=== PATIENT | male | born 1970 | race Caucasian/White ===

== ENCOUNTER → 2019-01-28 16:40 | Outpatient (CLI) | payer OTHER, SELFPAY ==
[2019-01-28 17:21] LABS: Basophils % 0.6 % (0.1-2.0); Eosinophils # 0.2 K/mm3 (0.0-0.4); Eosinophils % 2.6 % (0.1-12.0); Hematocrit 43.3 % (42.0-52.0); Hemoglobin 13.8 g/dL (14.1-18.0); Lymphocytes # 1.8 K/mm3 (0.7-4.5); Lymphocytes % 23.4 % (10-50); Mean Corpuscular HGB Conc 31.9 g/dL (31.8-35.4); Mean Corpuscular Hemoglobin 28.2 pg (27.0-31.2); Mean Corpuscular Volume 88.4 fl (80-94); Mean Platelet Volume 7.6 fl (7.4-10.4); Monocytes # 0.5 K/mm3 (0.1-1.0); Monocytes % 6.2 % (1.7-9.3); Neutrophils # 5.1 K/mm3 (1.8-7.8); Neutrophils % 67.3 % (37.0-80.0); Platelet Count 244 K/mm3 (142-424); Red Cell Distribution Width 13.6 % (11.5-17.5); White Blood Count 7.6 K/mm3 (4.8-10.8)
[2019-01-28 18:44] LABS: Blood Urea Nitrogen 10 mg/dL (7-18); Carbon Dioxide 31 mmol/L (21.0-32.0); Chloride 108 mmol/L (98-107); Creatinine,Serum 1.07 mg/dL (0.70-1.30); Estimated Glomerular Filt Rate 73 ml/min (>60); GFR (African American) 89 ML/MIN (>60); Glucose 94 mg/dL (74-106); Sodium 147 mmol/L (136-145)
== END ==
PROVIDERS: Visit Provider Surgery
DX: Z01.812 Encounter for preprocedural laboratory examination (principal)
CPT/HCPCS: 36415; 80048; 85025

== ENCOUNTER 2020-03-23 15:07 | Emergency (ER) | payer OTHER, SELFPAY ==
[2020-03-23 15:07] VITALS: BP 149/101; PULSE 79; RESP 18; TEMP 36.8; O2SAT 100; BMI 34.9
--- NOTE | 2020-03-23 15:42 | HMH.EDDIZZ ---
ED Disposition Clinical Impression: M?ni?re's disease Disposition: Home, Self-Care Condition on Discharge: Good Instructions: Vertigo, DI for Meniere's Disease Prescriptions: Meclizine HCl [Meclizine 25mg Tab] 25 mg PO TID 10 Days #30 tab Transmission Status: Pending to [facility] Triamterene/Hydrochlorothiazid [Triamterene-Hctz 37.5-25 mg Tb] 1 each PO DAILY 30 Days #30 tab Transmission Status: Pending to [facility] Ondansetron [Zofran 4mg ODT] 4 mg PO TID PRN 4 Days #15 tab.rapdis PRN Reason: Nausea Transmission Status: Pending to [facility] Referrals: Leigh Ann Tirado [Primary Care Provider] - - Critical Care Critical Care Time: No Attestation: On 03/23/20, the high probability of a clinically significant, sudden or life threatening deterioration of the following system(s) required my full and direct attention, intervention and personal management. The time I documented below is in addition to time spent performing reported procedures but includes the following listed in this critical care notation. Medical Decision Making - Medical Records Medical records reviewed: Yes: I reviewed the patient's medical records. - Juan J Inquiry Pt receiving controlled substance: No Vital Signs: 03/23/20 15:07 Temperature 98.2 F Temperature Source Oral Pulse Rate [Right] 79 Respiratory Rate 18 Blood Pressure [Right Arm] 149/101 H Blood Pressure Mean [Right Arm] 117 02 Sat by Pulse Oximetry 100 - Lab Data Lab results reviewed: Yes: I reviewed the patient's lab results. Dizzy HPI - General Chief Complaint: Dizziness Stated Complaint: Motion sickness when standing Time Seen by Provider: 03/23/20 15:42 Mode of Arrival: Ambulatory Limitations: No Limitations Description of Symptoms (Recalled from ER Triage Doc. by RN): States for the past 2 days he has been having episodes of dizziness where the room is spinning and its making him nauseous. - History of Present Illness HPI Narrative: 49-year-old male presents to the ED with acute onset of vertigo. He states the symptoms been on for the past 2 to 3 days. Patient also states that he does have a sense of nausea but denies has not had an episode of emesis. Patient states that anytime he moves he gets an acute sense of vertigo he states that the room feels like it spinning and has been drawn towards the middle of the floor. Patient also has a slight buzzing in his left ear as well. Patient states this this is happened to him in the past but not as severe as this.Patient denies any recent cough or shortness of breath, patient denies any sore throat or headache, patient denies any loss of taste or smell, patient denies any malaise or fatigue, patient denies any abdominal pain nausea vomiting or diarrhea. - Related Data Home Medications Medication Instructions Recorded Confirmed Levothyroxine Sodium 300 mcg PO DAILY 01/17/19 01/17/19 [Levothyroxine 300mcg (0.3mg) Tab] Omeprazole [Omeprazole 20mg Tab] 20 mg PO DAILY 01/17/19 01/17/19 Previous Rx's Medication Instructions Recorded Meclizine HCl [Meclizine 25mg Tab] 25 mg PO TID 10 Days #30 tab 03/23/20 Ondansetron [Zofran 4mg ODT] 4 mg PO TID PRN 4 Days #15 03/23/20 tab.rapdis Triamterene/Hydrochlorothiazid 1 each PO DAILY 30 Days #30 tab 03/23/20 [Triamterene-Hctz 37.5-25 mg Tb] Allergies Allergy/AdvReac Type Severity Reaction Status Date / Time No Known Allergies Allergy Verified 01/17/19 08:39 [facility] History - Hepatitis A Screen Drug use history?: No High risk sexual behaviors?: No History of sexually transmitted infection?: No Currently employed?: No Childcare worker?: No Do you have indoor plumbing?: Yes Do you have electricity?: Yes Attestation statement:: This patient has been screened for Hepatitis A risk factors. I have reviewed the patient's past medical history: Yes Medical History: Denies:: Diabetes Mellitus Type 1, Di
[2020-03-23 16:13] VITALS: BP 149/101; PULSE 79; RESP 18; TEMP 36.8; O2SAT 100
== END 2020-03-23 16:13 | disposition home or self-care (01) ==
PROVIDERS: Emergency Provider Family Medicine; PCP Family Medicine
DX: H81.02 Meniere's disease, left ear (principal)
CPT/HCPCS: 99281

== ENCOUNTER → 2020-04-19 17:05 | Outpatient (CLI) | payer OTHER, SELFPAY ==
[2020-04-19 19:39] LABS: Thyroid Stimulating Hormone 0.21 uIU/mL (0.465-4.68)
[2020-04-21 15:50] LABS: Thyroglobulin Level <1.0 IU/mL (0.0-0.9)
== END ==
PROVIDERS: Visit Provider Internal Medicine Endocrinology, Diabetes & Metabolism
DX: C73 Malignant neoplasm of thyroid gland (principal); D35.2 Benign neoplasm of pituitary gland; E29.1 Testicular hypofunction; R73.09 Other abnormal glucose; E66.9 Obesity, unspecified; Z68.35 Body mass index [BMI] 35.0-35.9, adult
CPT/HCPCS: 36415; 84443; 86800

== ENCOUNTER → 2020-08-23 17:08 | Outpatient (CLI) | payer OTHER, SELFPAY ==
[2020-08-23 18:23] LABS: Hemoglobin A1C 5.6 % (4.0-6.0)
[2020-08-23 19:39] LABS: Thyroid Stimulating Hormone 3.49 uIU/mL (0.465-4.68)
[2020-08-25 22:07] LABS: Prolactin 10.4 ng/mL (4.0-15.2); Thyroglobulin Level <1.0 IU/mL (0.0-0.9)
== END ==
PROVIDERS: Visit Provider Physician Assistant
DX: C73 Malignant neoplasm of thyroid gland (principal); E89.0 Postprocedural hypothyroidism; E22.1 Hyperprolactinemia
CPT/HCPCS: 36415; 83036; 84146; 84443; 86800

== ENCOUNTER 2021-03-17 11:56 | Emergency (ER) | payer OTHER, SELFPAY ==
[2021-03-17 13:06] VITALS: BP 169/100; PULSE 121; RESP 22; TEMP 36.8; O2SAT 96; BMI 35.7
[2021-03-17 13:12] VITALS: BP 150/95; PULSE 119; RESP 16; TEMP 36.8
--- NOTE | 2021-03-17 13:37 | HMH.EDUTC ---
[facility] [place] Clinical Impression: Viral syndrome Disposition: Home, Self-Care Condition on Discharge: Good Instructions: DI for Viral Syndrome, DI for COVID-19 (Suspected or Confirmed ), Preventing the Spread of Coronavirus Discharge Instructions Additional Instructions: Drink plenty of fluids. Take tylenol or ibuprofen for pain or fever. Take the medications as directed. Follow up with your regular doctor. GO TO THE ER FOR ANY WORSENING SYMPTOMS Quarantine until you know the results of your covid-19 test. If it is positive, the health department should call you and give you further instructions about your length of Quarantine and other things. Notify your school or workplace of your results and follow their instructions regarding return to work/school. Prescriptions: Ondansetron [Zofran 4mg ODT] 4 mg PO Q8HP PRN #12 tab PRN Reason: Nausea Transmission Status: Received by [facility] Benzonatate [Tessalon Perle 100mg Cap] 100 mg PO TIDP PRN #30 cap PRN Reason: Cough Transmission Status[facility] Referrals: Provider,Referral, [Primary Care Provider] - Forms: Work/School Release Time of Disposition: 14:11 Medical Decision Making - Medical Records Medical records reviewed: No: I reviewed the patient's medical records. - Juan J Inquiry Pt receiving controlled substance: No Vital Signs: 03/17/21 13:06 03/17/21 13:12 Temperature 98.2 F 98.2 F Temperature Source Oral Pulse Rate 119 H Pulse Rate [Left] 121 H Respiratory Rate 22 16 Blood Pressure 150/95 H Blood Pressure [Right Arm] 169/100 H Blood Pressure Mean [Right Arm] 123 02 Sat by Pulse Oximetry 96 [facility] [place] HPI - General Stated complaint: Head, kei, adb pain, diar, aches Time Seen by Provider: 03/17/21 13:37 Mode of Arrival: Ambulatory Source of Information: Patient Limitations: No Limitations Description of Symptoms (Recalled from Triage Doc. by RN): pt c/o BANKS, diarhea, stomach ache and body aches. HEENT Symptoms (Recalled from RN notes): Yes (BANKS) Resp Symptoms (Recalled from RN notes): No Skin Symptoms (Recalled from RN notes): No MS Symptoms (Recalled from RN notes): No Functional Status (Recalled from RN notes): body aches - History of Present Illness Provider Complaint: He c/o headache, feeling bad and sinus congestion for the past 2 days. - Related Data Home Medications Medication Instructions Recorded Confirmed Levothyroxine Sodium 300 mcg PO DAILY 01/17/19 01/17/19 [Levothyroxine 300mcg (0.3mg) Tab] Omeprazole [Omeprazole 20mg Tab] 20 mg PO DAILY 01/17/19 01/17/19 Previous Rx's Medication Instructions Recorded Meclizine HCl [Meclizine 25mg Tab] 25 mg PO TID 10 Days #30 tab 03/23/20 Ondansetron [Zofran 4mg ODT] 4 mg PO TID PRN 4 Days #15 03/23/20 tab.rapdis Triamterene/Hydrochlorothiazid 1 each PO DAILY 30 Days #30 tab 03/23/20 [Triamterene-Hctz 37.5-25 mg Tb] Benzonatate [Tessalon Perle 100mg 100 mg PO TIDP PRN #30 cap 03/17/21 Cap] Ondansetron [Zofran 4mg ODT] 4 mg PO Q8HP PRN #12 tab 03/17/21 Allergies Allergy/AdvReac Type Severity Reaction Status Date / Time No Known Allergies Allergy Verified 01/17/19 08:39 - Worker's Comp Is this a Worker's Comp case?: No [facility] History - Hepatitis A Screen Drug use history?: No High risk sexual behaviors?: No History of sexually transmitted infection?: No Currently employed?: No Childcare worker?: No Do you have indoor plumbing?: Yes Do you have electricity?: Yes Attestation statement:: This patient has been screened for Hepatitis A risk factors. I have reviewed the patient's past medical history: Yes Medical History: Denies:: Diabetes Mellitus Type 1, Diabetes Mellitus Type 2, Internal Pacemaker, Lung Disease, Seizures Other Medical History: Reports: Other. Denies: Blood Transfusion Reaction Other Surgeries: Yes: Other. No: Pacemaker Amputation: No Fractures: No
== END 2021-03-17 14:22 | disposition home or self-care (01) ==
PROVIDERS: Emergency Provider Nurse Practitioner Family
DX: B34.9 Viral infection, unspecified (principal); Z20.822 Contact with and (suspected) exposure to COVID-19
CPT/HCPCS: 99202; G0463; U0003

== ENCOUNTER → 2021-05-17 12:44 | Outpatient (CLI) | payer OTHER, SELFPAY ==
--- NOTE | 2021-05-17 12:49 | MR_ITS ---
PROCEDURE INFORMATION: Exam: MR Head Without and With Contrast Exam date and time: 05/17/2021 12:49 PM Age: 50 years old Clinical indication: Pain; Headache; Additional info: Pituitary adenoma. F/u pituitary adenoma. Headache. 26ml prohance given. 20ml lot: [id number] exp: Sep 2023 6ml lot: [id number] exp: Mar [address] 04-12-16. TECHNIQUE: Imaging protocol: MR of the head without and with intravenous contrast. Contrast material: PROHANCE; Contrast volume: 20 ml; Contrast route: IV; COMPARISON: HDWO CT HEAD W/O CONTRAST 04/12/2016 5:20 PM FINDINGS: Brain: There is no acute intracranial hemorrhage, cerebral edema, or midline shift. No restricted diffusion is present to suggest acute infarction. A dilated perivascular space is noted within the right basal ganglia. No enhancing lesions were identified after the administration of contrast. Cerebral ventricles: No hydrocephalus. Pituitary gland and sella: The superior border of the pituitary gland is mildly irregular and convex. There is a 2 mm focus of poor enhancement and increased T2 signal along this superior border of the pituitary gland. This could represent a tiny pituitary cyst or microadenoma. The pituitary stalk is mildly deviated to the right. Bones/joints: Unremarkable. Paranasal sinuses: There is a tiny mucous retention cyst in the left sphenoid sinus. Mastoid air cells: Normal as visualized. No mastoid effusion. Orbital cavity: Unremarkable. Soft tissues: Unremarkable. IMPRESSION: 1. No acute intracranial abnormality. 2. 2 mm lesion within the superior pituitary gland, possibly representing a cyst or microadenoma.
== END ==
PROVIDERS: Visit Provider Physician Assistant
DX: D35.2 Benign neoplasm of pituitary gland (principal)
CPT/HCPCS: 70553; A9576

== ENCOUNTER → 2021-11-22 16:37 | Outpatient (CLI) | payer OTHER, SELFPAY ==
[2021-11-22 17:33] LABS: Free T4 (Free Thyroxine) 1.45 ng/dl (0.78-2.19)
[2021-11-22 17:47] LABS: Thyroid Stimulating Hormone 0.63 uIU/mL (0.465-4.68)
== END ==
PROVIDERS: PCP Family Medicine; Visit Provider Physician Assistant
DX: E89.0 Postprocedural hypothyroidism (principal)
CPT/HCPCS: 36415; 84439; 84443

== ENCOUNTER 2021-12-01 16:29 | Emergency (ER) | payer OTHER, SELFPAY ==
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
[2021-12-01 16:46] VITALS: BP 138/92; PULSE 88; RESP 16; TEMP 36.6; O2SAT 98; BMI 35.4
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
[2021-12-01 17:42] VITALS: BP 138/92; PULSE 88; RESP 16; TEMP 36.6
== END 2021-12-01 17:43 | disposition home or self-care (01) ==
PROVIDERS: Emergency Provider Nurse Practitioner; PCP Family Medicine
DX: M54.2 Cervicalgia (principal); M25.512 Pain in left shoulder
CPT/HCPCS: 72040; 99213; G0463

== ENCOUNTER → 2022-02-05 06:52 | Outpatient (CLI) | payer OTHER, SELFPAY ==
[2022-02-05 07:28] LABS: Coronavirus 19, PCR Not Detected (NotDetected); Influenza A, PCR Not Detected (NotDetected); Influenza B, PCR Not Detected (NotDetected)
== END ==
PROVIDERS: PCP Family Medicine; Visit Provider Emergency Medicine
DX: Z20.822 Contact with and (suspected) exposure to COVID-19 (principal); J02.9 Acute pharyngitis, unspecified; R09.89 Other specified symptoms and signs involving the circulatory and respiratory systems
CPT/HCPCS: C9803; U0003; U0005